=== PATIENT | female | born 1990 | race American Indian/Alaskan Native ===

== ENCOUNTER 2017-10-03 18:57 | Emergency (ER) | payer BC, MEDICAID, OTHER ==
[~2017-10-03] VITALS: Ht 165.1 cm; Wt 94.0 kg
[~2017-10-03 18:57] MED LIST: ALBU6.7H INH; IBUP-2028 PO
[2017-10-04] MEDS: ALBUTEROL (0.083%) 2.5MG/3ML NEB HHN STA ×2 (02:09→04:00)
[2017-10-04] MEDS ORDERED: PREDNISONE 20MG TABLET PO STA (02:09)
[2017-10-04] MEDS ORDERED: IPRATROPIUM BROMIDE (0.02%) 0.5MG/2.5ML NEB HHN STA (02:09)
[2017-10-04 05:06] VITALS: BP 134/82
== END 2017-10-04 05:08 | disposition home or self-care (01) ==
LOC: ER 20:22
DX: J06.9 Acute upper respiratory infection, unspecified (principal); J45.901 Unspecified asthma with (acute) exacerbation; Z87.01 Personal history of pneumonia (recurrent)
CPT/HCPCS: 71045; 81025; 94640; 99283; J7512; J7611; Z7610

== ENCOUNTER 2021-06-24 09:58 | Emergency (ER) | payer MEDICAID ==
[~2021-06-24] VITALS: Ht 170.2 cm; Wt 95.0 kg
[~2021-06-24 09:58] MED LIST changes: -ALBU6.7H INH; +ALBU6.7H15 INH
[2021-06-24] MEDS ORDERED: LACTATED RINGERS 1,000 ML IV SCH (15:30)
[2021-06-24] MEDS ORDERED: ACETAMINOPHEN 325MG TABLET PO ONE (15:30)
[2021-06-24 18:03] VITALS: BP 127/74
== END 2021-06-24 18:04 | disposition home or self-care (01) ==
LOC: ER 09:58
DX: U07.1 COVID-19 (principal); J45.909 Unspecified asthma, uncomplicated
CPT/HCPCS: 71045; 81025; 96360; 96361; 99284; C9803; U0003; U0005

== ENCOUNTER 2021-09-20 07:07 | Emergency (ER) | payer MEDICAID, OTHER ==
[~2021-09-20] VITALS: Ht 170.2 cm; Wt 96.0 kg
[2021-09-20 07:10] VITALS: BP 122/77
[2021-09-20 09:48] LABS: BASOPHILS % 0.5 % (0.0-2.0); EOSINOPHILS % 3.4 % (0.0-5.0); HEMATOCRIT. 38.9 % (36.0-48.0); HEMOGLOBIN. 13.1 g/dL (12.0-16.0); LYMPHOCYTES % 33.6 % (20.0-50.0); MEAN CORPUSCULAR HEMOGLOBIN 28.9 pg (28.0-32.0); MEAN PLATELET VOLUME 8.4 fl (7.4-10.4); NEUTROPHILS % 56.5 % (40.0-76.0); PLATELET 268 x1000/uL (130-400); RED BLOOD CELL COUNT 4.52 mill/uL (4.2-5.4); RED CELL DISTRIBUTION WIDTH 13.3 % (11.6-14.6)
[2021-09-20 09:51] LABS: CLARITY URINE CLEAR (CLEAR); COLOR URINE YELLOW (YELLOW); KETONES URINE NEGATIVE (NEGATIVE); LEUKOCYTE ESTERASE URINE TRACE (NEGATIVE); NITRITE URINE NEGATIVE (NEGATIVE); OCCULT BLOOD URINE 3+ (NEGATIVE); PROTEIN URINE NEGATIVE (NEGATIVE); SPECIFIC GRAVITY URINE 1.004 (1.005-1.030); UROBILINOGEN URINE 0.2 E.U./dL (0.2-1.0)
[2021-09-20 09:56] LABS: CHLORIDE 105 mEq/L (98-107)
[2021-09-20 10:21] LABS: B-HCG QUANTITATIVE 1070 mIU/mL (<3)
[2021-09-20] MEDS ORDERED: NITR-87 MT (11:17)
[2021-09-20] MEDS ORDERED: PREN-55 MT (11:17)
== END 2021-09-20 11:26 | disposition home or self-care (01) ==
LOC: ER 08:24
DX: O20.0 Threatened abortion (principal); O23.41 Unspecified infection of urinary tract in pregnancy, first trimester; N39.0 Urinary tract infection, site not specified; Z3A.01 Less than 8 weeks gestation of pregnancy
CPT/HCPCS: 36415; 76801; 80053; 81003; 81025; 84702; 85025; 86850; 86900; 99284

== ENCOUNTER 2021-10-21 18:37 | Emergency (ER) | payer OTHER ==
[~2021-10-21] VITALS: Ht 165.1 cm; Wt 99.0 kg
[~2021-10-21 18:37] MED LIST changes: +NITR-87 MT; +PREN-55 MT
[2021-10-21] MEDS ORDERED: ONDANSETRON HCL 4MG/2ML INJ IV ONE (20:00)
[2021-10-21] MEDS ORDERED: SODIUM CHLORIDE 0.9% 1,000 ML IV ONE (20:00)
[2021-10-21 20:44] LABS: BASOPHILS % 0.1 % (0.0-2.0); EOSINOPHILS % 1.3 % (0.0-5.0); HEMATOCRIT. 37.8 % (36.0-48.0); HEMOGLOBIN. 12.9 g/dL (12.0-16.0); LYMPHOCYTES % 24.9 % (20.0-50.0); MEAN CORPUSCULAR HEMOGLOBIN 29.4 pg (28.0-32.0); MEAN CORPUSCULAR VOLUME 86.5 fL (81.0-99.0); MEAN PLATELET VOLUME 8.6 fl (7.4-10.4); MONOCYTES % 6.3 % (2.0-8.0); NEUTROPHILS % 67.4 % (40.0-76.0); PLATELET 208 x1000/uL (130-400); RED BLOOD CELL COUNT 4.37 mill/uL (4.2-5.4); RED CELL DISTRIBUTION WIDTH 12.9 % (11.6-14.6)
[2021-10-21 20:46] LABS: CHLORIDE 106 mEq/L (98-107)
[2021-10-21 21:09] LABS: B-HCG QUANTITATIVE 59283 mIU/mL (<3)
[2021-10-21 22:18] LABS: CLARITY URINE CLEAR (CLEAR); COLOR URINE DARK YELLOW (YELLOW); KETONES URINE TRACE (NEGATIVE); LEUKOCYTE ESTERASE URINE 1+ (NEGATIVE); NITRITE URINE NEGATIVE (NEGATIVE); OCCULT BLOOD URINE 2+ (NEGATIVE); PH URINE 6.5 (4.5-8.0); PROTEIN URINE TRACE (NEGATIVE); SPECIFIC GRAVITY URINE 1.027 (1.005-1.030); UROBILINOGEN URINE 0.2 E.U./dL (0.2-1.0)
[2021-10-21 22:31] LABS: *AMPHETAMINES SCREEN URINE NEGATIVE (NEGATIVE); *BARBITURATES SCREEN URINE NEGATIVE (NEGATIVE); *BENZODIAZEPINES SCREEN URINE NEGATIVE (NEGATIVE); *COCAINE SCREEN URINE NEGATIVE (NEGATIVE); CANNABINOID URINE SCREEN NEGATIVE (NEGATIVE); METHADONE URINE SCREEN NEGATIVE (NEGATIVE); OPIATES URINE SCREEN NEGATIVE (NEGATIVE); PHENCYCLIDINE URINE SCREEN NEGATIVE (NEGATIVE)
[2021-10-22] MEDS ORDERED: NITR-87 MT (01:27)
[2021-10-22] MEDS ORDERED: ONDA4TAB11 PO (01:27)
[2021-10-22] MEDS ORDERED: ONDANSETRON HCL 4MG/2ML INJ IV NR (02:45)
[2021-10-22 04:36] VITALS: BP 118/82
== END 2021-10-22 04:38 | disposition home or self-care (01) ==
LOC: ER 18:37
DX: O20.0 Threatened abortion (principal); O23.41 Unspecified infection of urinary tract in pregnancy, first trimester; N39.0 Urinary tract infection, site not specified; O21.0 Mild hyperemesis gravidarum; O26.891 Other specified pregnancy related conditions, first trimester; Z3A.09 9 weeks gestation of pregnancy
CPT/HCPCS: 36415; 76801; 76817; 80053; 80305; 81003; 81025; 83690; 84702; 85025; 86850; 86900; 86901; 87086; 96361; 96374; 99284; J2405; J7030

== ENCOUNTER 2021-11-04 06:18 | Emergency (ER) | payer OTHER ==
[~2021-11-04] VITALS: Ht 165.1 cm; Wt 100.1 kg
[~2021-11-04 06:18] MED LIST changes: +ONDA4TAB11 PO
[2021-11-04 09:06] LABS: BASOPHILS % 0.1 % (0.0-2.0); HEMATOCRIT. 37.5 % (36.0-48.0); HEMOGLOBIN. 12.7 g/dL (12.0-16.0); LYMPHOCYTES % 25.7 % (20.0-50.0); MEAN CORPUSCULAR HEMOGLOBIN 28.8 pg (28.0-32.0); MEAN CORPUSCULAR VOLUME 85.3 fL (81.0-99.0); MEAN PLATELET VOLUME 8.5 fl (7.4-10.4); MONOCYTES % 6.4 % (2.0-8.0); NEUTROPHILS % 65.8 % (40.0-76.0); PLATELET 214 x1000/uL (130-400)
[2021-11-04 09:14] LABS: CHLORIDE 105 mEq/L (98-107)
[2021-11-04 09:36] LABS: B-HCG QUANTITATIVE 52700 mIU/mL (<3)
[2021-11-04 12:00] VITALS: BP 116/65
[2021-11-04 12:49] LABS: CLARITY URINE CLEAR (CLEAR); COLOR URINE YELLOW (YELLOW); KETONES URINE NEGATIVE (NEGATIVE); LEUKOCYTE ESTERASE URINE 1+ (NEGATIVE); NITRITE URINE NEGATIVE (NEGATIVE); OCCULT BLOOD URINE 2+ (NEGATIVE); PH URINE 6.5 (4.5-8.0); PROTEIN URINE TRACE (NEGATIVE); SPECIFIC GRAVITY URINE 1.017 (1.005-1.030); UROBILINOGEN URINE 0.2 E.U./dL (0.2-1.0)
[2021-11-04] MEDS ORDERED: NITR-87 MT (13:18)
== END 2021-11-04 13:30 | disposition home or self-care (01) ==
LOC: ER 06:18
DX: O20.0 Threatened abortion (principal); Z3A.11 11 weeks gestation of pregnancy
CPT/HCPCS: 36415; 76801; 80053; 81003; 84702; 85025; 86850; 86900; 99284

== ENCOUNTER 2021-12-16 12:10 | Emergency (ER) | payer OTHER ==
[~2021-12-16] VITALS: Ht 165.1 cm; Wt 100.0 kg
[2021-12-16 12:24] VITALS: BP 130/74
[2021-12-16 19:07] LABS: BASOPHILS % 0.2 % (0.0-2.0); EOSINOPHILS % 1.7 % (0.0-5.0); HEMATOCRIT. 37.1 % (36.0-48.0); HEMOGLOBIN. 12.1 g/dL (12.0-16.0); LYMPHOCYTES % 18.9 % (20.0-50.0); MEAN CORPUSCULAR HEMOGLOBIN 28.9 pg (28.0-32.0); MEAN CORPUSCULAR VOLUME 88.7 fL (81.0-99.0); MEAN PLATELET VOLUME 8.6 fl (7.4-10.4); MONOCYTES % 4.3 % (2.0-8.0); NEUTROPHILS % 74.9 % (40.0-76.0); PLATELET 214 x1000/uL (130-400); RED BLOOD CELL COUNT 4.19 mill/uL (4.2-5.4); RED CELL DISTRIBUTION WIDTH 13.7 % (11.6-14.6)
[2021-12-16 19:15] LABS: CHLORIDE 103 mEq/L (98-107)
[2021-12-16 19:38] LABS: B-HCG QUANTITATIVE 12947 mIU/mL (<3)
[2021-12-16 21:28] LABS: CLARITY URINE CLEAR (CLEAR); COLOR URINE YELLOW (YELLOW); KETONES URINE 1+ (NEGATIVE); LEUKOCYTE ESTERASE URINE 3+ (NEGATIVE); NITRITE URINE NEGATIVE (NEGATIVE); OCCULT BLOOD URINE TRACE (NEGATIVE); PROTEIN URINE TRACE (NEGATIVE); SPECIFIC GRAVITY URINE 1.017 (1.005-1.030); UROBILINOGEN URINE 0.2 E.U./dL (0.2-1.0)
[2021-12-16 21:39] LABS: *AMPHETAMINES SCREEN URINE NEGATIVE (NEGATIVE); *BARBITURATES SCREEN URINE NEGATIVE (NEGATIVE); *BENZODIAZEPINES SCREEN URINE NEGATIVE (NEGATIVE); *COCAINE SCREEN URINE NEGATIVE (NEGATIVE); CANNABINOID URINE SCREEN NEGATIVE (NEGATIVE); METHADONE URINE SCREEN NEGATIVE (NEGATIVE); OPIATES URINE SCREEN NEGATIVE (NEGATIVE); PHENCYCLIDINE URINE SCREEN NEGATIVE (NEGATIVE)
[2021-12-16] MEDS ORDERED: NITR-87 MT (21:51)
== END 2021-12-16 22:15 | disposition home or self-care (01) ==
LOC: ER 12:10
DX: O20.0 Threatened abortion (principal); Z3A.17 17 weeks gestation of pregnancy
CPT/HCPCS: 36415; 76805; 80053; 80305; 81003; 84702; 85025; 86850; 86900; 99284

== ENCOUNTER 2024-01-14 | Emergency (ER) | payer MEDICAID, OTHER ==
[~2024-01-14] VITALS: Ht 165.1 cm; Wt 109.0 kg
[~2024-01-14] MED LIST changes: +CEPH500C2 MT; +IRON1CAP MT; +METH PO; -NITR-87 MT
[2024-01-14 00:26] VITALS: TEMP 98.2; O2SAT 98
[2024-01-14] MEDS ORDERED: IBUPROFEN 600MG TABLET PO ONE (01:00)
[2024-01-14] MEDS ORDERED: IBUP-2028 MT (02:23)
[2024-01-14] MEDS ORDERED: TOPUD MT (02:23)
[2024-01-14] MEDS: IBUPROFEN 600MG TABLET PO NR (03:29)
[2024-01-14 03:32] VITALS: BP 123/85; PULSE 74; RESP 18
== END 2024-01-14 03:34 | disposition home or self-care (01) ==
LOC: ER 00:37
DX: B34.9 Viral infection, unspecified (principal); J45.909 Unspecified asthma, uncomplicated; Z20.822 Contact with and (suspected) exposure to COVID-19; Z79.899 Other long term (current) drug therapy
CPT/HCPCS: 87426; 87804; 99283

== ENCOUNTER 2025-04-10 15:20 | Emergency (ER) | payer MEDICAID ==
[~2025-04-10] VITALS: Ht 167.6 cm; Wt 109.0 kg
[~2025-04-10 15:20] MED LIST changes: +IBUP-2028 MT; +ONDA-239 PO; -ONDA4TAB11 PO; +TOPUD MT
[2025-04-10 16:50] LABS: BASOPHILS % 0.2 % (0.0-2.0); EOSINOPHILS % 2.4 % (0.0-5.0); HEMATOCRIT. 35.8 % (36.0-48.0); HEMOGLOBIN. 11.1 g/dL (12.0-16.0); LYMPHOCYTES % 25.3 % (20.0-50.0); MEAN PLATELET VOLUME 9.0 fl (7.4-10.4); MONOCYTES % 6.8 % (2.0-8.0); NEUTROPHILS % 65.3 % (40.0-76.0); PLATELET 237 x1000/uL (130-400); RED BLOOD CELL COUNT 4.53 mill/uL (4.2-5.4); RED CELL DISTRIBUTION WIDTH 15.1 % (11.6-14.6)
[2025-04-10 17:04] LABS: CREATININE 0.8 mg/dL (0.6-1.0); UREA NITROGEN BLOOD 5 mg/dL (9-23)
[2025-04-10 17:20] LABS: B-HCG QUANTITATIVE 7337 mIU/mL (<6)
[2025-04-10 18:42] VITALS: BP 108/60; PULSE 85; RESP 15; TEMP 36.6; O2SAT 99
== END 2025-04-10 18:44 | disposition home or self-care (01) ==
LOC: ER 15:20
DX: O20.0 Threatened abortion (principal); O99.511 Diseases of the respiratory system complicating pregnancy, first trimester; J45.909 Unspecified asthma, uncomplicated; R10.21 Pelvic and perineal pain right side; Z3A.01 Less than 8 weeks gestation of pregnancy
CPT/HCPCS: 36415; 76801; 80048; 84702; 85025; 86850; 86900; 99285